=== PATIENT | female | born 1960 | race Caucasian/White ===

== ENCOUNTER → 2017-05-23 | Outpatient (CLI) | payer BC ==
[~2017-05-23] MED LIST: LEVOTHROID0.075 MG PO; METHOCARBAMOL500 MG PO; METOPROLOL SUC100 M1 PO; NORCO 325 MG-51 TAB PO
== END ==
LOC: MC.RAD 09:48
DX: Z12.31 Encounter for screening mammogram for malignant neoplasm of breast (principal)

== ENCOUNTER → 2018-07-17 | Outpatient (CLI) | payer BC | LOC: MC.RAD 09:35 | DX: Z12.31 Encounter for screening mammogram for malignant neoplasm of breast (principal) ==

== ENCOUNTER → 2019-07-18 | Outpatient (CLI) | payer BC | LOC: MC.RAD 09:46 | DX: Z12.31 Encounter for screening mammogram for malignant neoplasm of breast (principal) ==

== ENCOUNTER → 2020-07-23 | Outpatient (CLI) | payer BC | LOC: MC.RAD 09:23 | DX: Z12.31 Encounter for screening mammogram for malignant neoplasm of breast (principal) ==

== ENCOUNTER → 2021-07-29 | Outpatient (CLI) | payer BC | LOC: MC.RAD 09:23 | DX: Z12.31 Encounter for screening mammogram for malignant neoplasm of breast (principal) ==

== ENCOUNTER → 2022-08-11 | Outpatient (CLI) | payer BC | LOC: MC.RAD 09:40 | DX: Z12.31 Encounter for screening mammogram for malignant neoplasm of breast (principal) ==

== ENCOUNTER → 2023-08-14 | Outpatient (CLI) | payer BC | LOC: MC.RAD 09:08 | DX: Z12.31 Encounter for screening mammogram for malignant neoplasm of breast (principal) ==